=== PATIENT | female | born 1980 | race Caucasian/White ===

== ENCOUNTER → 2017-07-31 12:54 | Outpatient (CLI) | payer OTHER, SELFPAY ==
--- NOTE | 2017-07-31 12:58 | VDLE_ITS ---
Reason For Study: LEG PAIN RIGHT LEFT CFV is compressible, spontaneous, phasic, CFV is compressible, spontaneous, phasic, competent and demonstrates normal competent, and demonstrates normal augmentation. augmentation. FV is compressible, spontaneous, phasic, FV is compressible, spontaneous, phasic, competent and demonstrates normal competent and demonstrates normal augmentation. augmentation. POP V is compressible, spontaneous, phasic, POP V is compressible, spontaneous, phasic, competent and demonstrates normal competent and demonstrates normal augmentation. augmentation. T/P Trunk is compressible. T/P Trunk is compressible. PTV is compressible. PTV is compressible. RT PerV is compressible. LT PerV is compressible. SFJ competent SFJ INCOMPETENT with reflux greater than .5 GSV competent sec SSV competent. GSV INCOMPETENT with reflux greater than .5 Procedure sec and diameter of .32 x .31 cm Exam performed in department. SSV is competent. Interpretation Summary Deep veins of the lower extremities are bilaterally patent and compressible segmentally. There is no evidence of deep vein thrombosis on either side. Valvular competence appears intact within the proximal deep venous systems bilaterally. The greater saphenous veins appear bilaterally patent and compressible segmentally. The right sapheno-femoral junction is competent . The left sapheno- femoral junction is incompetent . The right greater saphenous vein appears segmentally competent. The left greater saphenous vein appears segmentally incompetent. Small saphenous veins are patent and competent bilaterally. Ordering Physician: Jose Pearson Referring Physician: Jose Pearson Performed By: Marj Gomez RVT
== END ==
PROVIDERS: Family Provider Family Medicine; PCP Family Medicine; Visit Provider Surgery
DX: M79.89 Other specified soft tissue disorders (principal); M79.609 Pain in unspecified limb; I87.2 Venous insufficiency (chronic) (peripheral); I83.10 Varicose veins of unspecified lower extremity with inflammation
CPT/HCPCS: 93970

== ENCOUNTER → 2019-03-01 | Outpatient (CLI) | payer OTHER, SELFPAY ==
[2018-08-03 14:23] VITALS: BMI 23.9
[2019-03-02 15:53] LABS: CHOLESTEROL TOTAL 316 mg/dL (100-199); HDL-C 63 mg/dL (>39); HDL-P TOTAL 44.8 umol/L (>=30.5); SMALL LDL-P 1517 nmol/L (<=527); TRIGLYCERIDES 154 mg/dL (0-149)
[2019-03-02 16:07] LABS: INSULIN RESISTANCE SCORE 39 (<=45); LDL SIZE 21.1 nm (>20.5); LDL-C 222 mg/dL (0-99); LDL-P 3130 nmol/L (<1000)
== END | disposition home or self-care (01) ==
LOC: LAB 10:22
PROVIDERS: Family Provider Family Medicine; PCP Family Medicine; Referring Provider Family Medicine; Visit Provider Family Medicine
DX: E78.5 Hyperlipidemia, unspecified (principal)
CPT/HCPCS: 36415; 80061; 83704

== ENCOUNTER → 2019-04-09 | Outpatient (CLI) | payer OTHER, SELFPAY ==
[2019-04-09 13:37] VITALS: BMI 23.9
[2019-04-09 19:35] LABS: Chlamydia Trachomatis by PCR Negative (Negative); Neisserai gonorrhoeae by PCR Negative (Negative); Probe Check PASS; Sample Adequacy Control PASS; Specimen Processing Control PASS
== END | disposition home or self-care (01) ==
LOC: LABSPEC 17:04
PROVIDERS: Family Provider Family Medicine; PCP Family Medicine; Referring Provider Nurse Practitioner Women's Health; Visit Provider Nurse Practitioner Women's Health
DX: N89.8 Other specified noninflammatory disorders of vagina (principal); Z11.3 Encounter for screening for infections with a predominantly sexual mode of transmission
CPT/HCPCS: 87070; 87086; 87205; 87491; 87591

== ENCOUNTER → 2019-07-01 08:23 | Outpatient (CLI) | payer OTHER, SELFPAY ==
[2018-08-03 14:23] VITALS: BMI 23.9
[2019-04-09 13:37] VITALS: BMI 23.9
[2019-07-01 12:05] LABS: HIV - WCH Non-Reactive (Nonreactive)
[2019-07-02 14:08] LABS: CHOLESTEROL TOTAL 192 mg/dL (100-199); HDL-C 69 mg/dL (>39); HDL-P TOTAL 49.4 umol/L (>=30.5); SMALL LDL-P 1122 nmol/L (<=527); TRIGLYCERIDES 105 mg/dL (0-149)
[2019-07-02 19:24] LABS: INSULIN RESISTANCE SCORE 34 (<=45); LDL SIZE 20.1 nm (>20.5); LDL-C 102 mg/dL (0-99); LDL-P 1791 nmol/L (<1000)
[2019-07-02 20:07] LABS: HCV Quant. RNA PCR HCV Not Detected IU/mL (.); HEPATITIS B SURFACE AG Negative (Negative); Hepatitis A IgM Antibody Negative (Negative); Hepatitis B Core AB IgM Negative (Negative)
[2019-07-02 21:45] LABS: HSV 1 IgG < 0.91 index (0.00-0.90); HSV 2 IgG < 0.91 index (0.00-0.90); Hep C Antibodies <0.1 s/co ratio (0.0-0.9)
[2019-07-08 03:49] LABS: Rapid Plasmin Reagin (RPR) NONREACTIVE (NONREACTIVE)
== END ==
LOC: LAB.FUTURE 08:25 → LAB 08:29
PROVIDERS: Nurse Practitioner Women's Health; Family Provider Family Medicine; PCP Family Medicine; Referring Provider Family Medicine; Visit Provider Family Medicine
DX: E78.5 Hyperlipidemia, unspecified (principal); Z11.3 Encounter for screening for infections with a predominantly sexual mode of transmission
CPT/HCPCS: 36415; 80061; 80074; 83704; 86592; 86695; 86696; 86703; 87522

== ENCOUNTER → 2019-08-04 17:10 | Outpatient (CLI) | payer OTHER, SELFPAY ==
[2019-08-04 08:51] VITALS: BMI 23.9
[2019-08-10 12:07] LABS: HPV Genotype 16, Aptima Negative (Negative)
[2019-08-10 17:11] LABS: HPV APTIMA, High Risk Positive (Negative); HPV Genotype 18,45 Aptima Negative (Negative)
== END ==
PROVIDERS: PCP Family Medicine; Referring Provider Nurse Practitioner Women's Health; Visit Provider Nurse Practitioner Women's Health
DX: Z12.4 Encounter for screening for malignant neoplasm of cervix (principal)
CPT/HCPCS: 87624; 88175; G0145

== ENCOUNTER → 2019-08-12 07:30 | Outpatient (CLI) | payer OTHER, SELFPAY ==
[2019-08-04 08:51] VITALS: BMI 23.9
--- NOTE | 2019-08-12 07:00 | BI_ITS ---
MAMMOGRAPHY - BILATERAL SCREENING REASON FOR EXAM: Female, 38 years old. Routine annual screening examination. PERTINENT HISTORY: Grandmother with breast cancer. History of bilateral breast implants. TECHNIQUE: Digital bilateral breast pearl (3D mammographic acquisition) in the CC and MLO projections. 2-D mediolateral oblique (MLO) and craniocaudad (CC) views of both breasts were obtained. CAD: Full Field Digital Mammography with Computer Added Detection was performed. COMPARISON: None. Baseline examination. FINDINGS: Breast Composition: The breasts are heterogeneously dense, which may obscure small masses. There are no dominant masses or suspicious calcifications. I suspect a 6.3 mm x 9.6 mm well-defined nodule in the upper lateral aspect of the left breast. Correlation with ultrasound is recommended. Bilateral breast implants are seen. No other significant abnormalities are identified. BI/SCREEN MAMM (CAD) W/PEARL BILAT IMPRESSION: I suspect is 6.3 mm x 9.6 mm well-defined nodule in the upper lateral aspect of the left breast. Correlation with ultrasound is recommended. ASSESSMENT CATEGORY: BIRADS Category 0: Incomplete. Need additional imaging evaluation. A letter regarding these results will be sent to the patient by the facility within 30 days. Approximately 10% of breast cancers are not detected by mammography. A normal mammogram should not delay biopsy of a clinically suspicious abnormality. [id number] Electronically Signed: Krishan Lu, at 8:55 EDT , Service support ,
== END ==
PROVIDERS: PCP Family Medicine; Referring Provider Nurse Practitioner Women's Health; Visit Provider Nurse Practitioner Women's Health
DX: Z12.31 Encounter for screening mammogram for malignant neoplasm of breast (principal)
CPT/HCPCS: 77063; 77067

== ENCOUNTER → 2019-08-13 11:04 | Outpatient (CLI) | payer OTHER, SELFPAY ==
[2019-08-04 08:51] VITALS: BMI 23.9
--- NOTE | 2019-08-13 11:07 | US_ITS ---
STUDY: ULTRASOUND BREAST - LEFT REASON FOR EXAM: Female, 38 years old. Abnormal screening mammogram. TECHNIQUE: Axial and longitudinal images of the LEFT breast were performed with a high resolution ultrasound transducer. # OF IMAGES: 18 COMPARISON: Comparison is made with prior mammogram dated August 12, 2019. FINDINGS: LEFT Breast: The mammographic abnormality corresponds to a 7 mm x 10 mm x 3 mm cyst at the 2:00 position of the breast at 3 cm from the nipple. US/Breast Limited Unilateral IMPRESSION: The mammographic abnormality corresponds to a 7 mm x 10 mm x 3 mm cyst. ASSESSMENT CATEGORY: BIRADS Category 2: Benign. A letter regarding these results will be sent to the patient by the facility within 30 days. Electronically Signed: Krishan Lu, at 11:01 EDT , Service support ,
== END ==
PROVIDERS: PCP Family Medicine; Referring Provider Nurse Practitioner Women's Health; Visit Provider Nurse Practitioner Women's Health
DX: R92.8 Other abnormal and inconclusive findings on diagnostic imaging of breast (principal)
CPT/HCPCS: 76642

== ENCOUNTER 2019-11-23 07:08 | Day surgery (SDC) | payer OTHER, SELFPAY ==
[2019-08-04 08:51] VITALS: BMI 23.9
[2019-11-16 17:11] LABS: Hematocrit 38.6 % (37-47); Hemoglobin 12.6 g/dL (12.0-15.0); Mean Corp Hgb Conc 32.6 g/dL (32-36); Mean Corpuscular Hgb 29.6 pg (27.0-32.0); Mean Corpuscular Volume 90.6 fL (81-99); Mean Platelet Vol. 10.5 fl (6.2-12.0); Platelet Count 238 K/mm3 (150-450); RBC Distribution Width CV 12.9 % (11.6-14.6); RBC Distribution Width SD 42.1 fl (35.1-43.9); Red Blood Count 4.26 M/mm3 (4.2-5.4); White Blood Count 7.2 K/mm3 (4.4-11.0)
[2019-11-18 10:07] VITALS: BMI 23.9
[2019-11-23] VITALS (9 sets, daily range): BP systolic 86–104; BP diastolic 47–59; PULSE 53–92; RESP 16; TEMP 37–37.3; O2SAT 96–100; BMI 26.3
[2019-11-23 07:32] LABS: Internal QC Validated? YES +Cl - CLEAR BKGD; Pregnancy, Urine Negative Negative
--- NOTE | 2019-11-23 07:36 | OP.PCM_ITS ---
Problem List (1) Sterilization Status: Acute Report of Operation Date of Procedure: 11/23/19 Pre-Operative Diagnosis: sterilization Post-Operative Diagnosis: same plus mild left pelvic side wall adhesions Surgery/Procedure Performed:: laparoscopic bilateral salpingectomy Description of Surgical Findings:: nl tubes ovaries appendix upper abdomen left sigmoid to pelvic side wall adhesions construction project mgr: Krystle Kaur Type of Anesthesia:: General Special Medications: none Specimen's removed: tubes Drains: none Estimated Blood Loss (mL): 10 Fluids Replaced: crystalloid Description of Procedure: Patient was taken in the operating room and was placed under general anesthesia was prepped and draped in normal sterile fashion in the dorsal lithotomy position. Bladder was drained of clear urine and SCDs were on preoperatively. Uterus was sounded and a uterine manipulator was placed after dilating. Attention was then paid to the abdominal portion of the procedure and the umbilicus was elevated with towel clamps and injected with Marcaine and after a 5 mm incision was made and the Veress needle was entered into the abdomen confirmed to be intra-abdominal with a low opening pressure of less than 5 mmHg. Abdomen was insufflated with CO2 gas and a 5 mm optical trocar was placed under direct visualization. A left lower quadrant 5 mm port and a 5 mm port suprapubically were placed under direct visualization. left sigmoid to pelvic side wall adhesions were transected to restore normal anatomy. Uterus was well visualized and bilateral fallopian tubes identified and bilateral tubes were elevated and transecting across the mesosalpinx and the attachment to the uterine corpus bilaterally the tubes were removed without complication. Excellent hemostasis was noted. Fallopian tubes were removed through the lower port sites without complication. Liver and upper abdomen were visualized notably within normal limits and no other gross abnormalities were seen in the abdomen. All instruments removed from the abdomen after gas was desufflated. Port sites were closed with 3-0 Monocryl Steri's and op sites were applied. All instruments removed from the vagina and patient was awoken and taken recovery in stable condition. Grafts/Implants Used: none - Complications none - Admit VTE Documentation VTE Present on Admission: No VTE Mechan Device Prophylaxis: SCD's Multi Select Codes - Urinary/Genital Urinary/Genital CPT Codes: 66213 Laproscopic BS/O
--- NOTE | 2019-11-23 07:36 | HP.PCM_ITS ---
- Problem List (1) Sterilization Status: Acute History and Physical Date of Admission: 11/23/19 Intake Vital Signs 11/18/19 BMI 23.9 11/18/19 Height 5 ft 3 in 11/18/19 Weight: 149 lb 8 oz 11/18/19 BMI 26.4 11/18/19 BP 102/64 Intake Visit Reasons: pre op Chief Complaint: pre op Lap BS 11/23/19 Men'S Leather Dress Belt Maker Required: No Is patient in pain?: No Allergies No Known Allergies Allergy (Verified 11/18/19 10:06) Medications vitamin B complex 1 tab PO QDAY 08/05/17 [History Confirmed 11/18/19] omega-3 fatty acids 1,000 mg capsule 1,000 mg PO DAILY 08/04/19 [History Confirmed 11/18/19] rosuvastatin 20 mg tablet 20 mg PO DAILY 08/04/19 [History Confirmed 11/18/19] Spironolactone [Aldactone] 100 mg PO DAILY 11/16/19 [History Confirmed 11/18/19] Ubidecarenone [Coq-10] 100 mg PO DAILY 11/16/19 [History Confirmed 11/18/19] Is last menstrual period known: No Post menopausal: No Patient : No : No [facility] Medical History Headaches, cluster (Acute) Hyperlipidemia (Acute) Surgical History History of breast augmentation (Acute) History of exploratory laparotomy (Acute) Family History Other Alcoholism Anxiety Asthma High cholesterol Social History (Updated 11/18/19 @ 10:[address] 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 Pregancy History 3 Elective abortions Hx Para 2 Spontaneous abortions 1 Hx # Term Pregnancies Ectopic pregnancies Hx # Pregnancies Multiple births # of living children 2 Past Pregnancies Del. Date Name GA/Weeks Outcome Route Bth Weight [facility] [place] 2009 Unknown [place] 2011 ROS Const Constitutional: Denies fatigue, fever(s), headache(s), increased appetite, poor appetite, weight gain or weight loss ENT ENT: Denies dizziness or dry mouth Cardio Card: Denies chest pain Resp Resp: Denies cough or dyspnea GI GI: Reports as per HPI; denies abdominal pain, constipation, nausea or vomiting : Reports as per HPI; denies difficulty urinating, painful urination, nipple discharge, urinary frequency, urinary incontinence, urinary hesitancy, urinary urgency, vaginal discharge, vaginal dryness, vaginal odor or vaginal itching Musc Musc: Denies joint pain, back pain or muscle weakness Skin Skin/Breast: Denies change in hair, breast lump, breast pain, breast skin changes or nipple discharge Neuro Neuro: Denies dizziness Psych Psych: Denies anxiety or depression Endo Endo: Denies cold intolerance, excessive sweating, heat intolerance or increased thirst Jr/Lymph Hematologic/Lymphatic: Denies easy bleeding, Denies easy bruising, Denies enlarged lymph nodes Exam Const General: cooperative, healthy appearing, comfortable, no acute distress, well developed Nutritional Appearance: average body habitus Orientation: alert [facility] Head: normal to inspection, normocephalic Ears: hearing grossly normal bilaterally, external ears normal Nose: external nose normal, nares normal Face and sinus: normal facial exam Neck Neck: normal visual inspection, no lymphadenopathy, trachea midline Thyroid: thyroid normal Chest Chest palpation & inspection: normal inspection of the chest Resp Effort & Inspection: normal respiratory effort Auscultation: clear to auscultation bilaterally Cardio Rate: regular rate Rhythm: regular rhythm Heart Sounds: S1 normal, S2 normal GI Inspection: normal to inspection, non-distended Palpation: soft, no hepatosplenomegaly Musc Cervical Spine: other Other: gross motor intact no deficits, full bilateral strength Skin General: no rashes or lesions noted Neuro General: alert, awake, moves all extremities, no focal motor deficits Motor: muscle tone normal throughout Extrem General: normal to inspection, no pedal edema Psych Appearance: grossly normal Mental Status: mental status grossly normal Affect: normal affect Speech and Movement: speech and movement normal Assessment & Plan Problems 1. Sterilization Z30.2 Plan After discussing the patient's diagnosis and treatment plan options, patient wishes to proceed with surgical management. I have discussed with the patient the risks, benefits, and alternatives of the procedure which include but are not limited to risks of anesthesia, bleeding, infection, possible damage to bowel, bladder, or surrounding vasculature which could lead to additional surgery to evaluate any complications. Patient agrees to procedure and wishes to proceed. ACOG/uptodate references given for additional information regarding procedure. Plan Detail Goals Decrease pain and spasm Coding Level of Care Code No Charge Diagnoses Sterilization Z30.2 UPDATE- I have seen the patient and performed any clinically relevant updates to the history and physical exam. Mamie Barbosa MD
[2019-11-23] MEDS: Lactated Ringers 1,000 ML 100 ML IV ×2 (07:47→09:01)
--- NOTE | 2019-11-23 08:02 | PCM.DC.TUB ---
Discharge Diet: No Restrictions - Increase fluid intake for the next 48 hours. Discharge Activity: Return to Normal Activity, May Drive - when you are no longer taking narcotic pain medications., May Shower, May Take a Tub Bath - in 7 days Additional Activity Instructions:: Ambulate often the next week after surgery. Nothing in the vagina for 5 days. Call your doctor if your incision/area has: Continuous Slow Oozing, Sudden Increased Bleeding, Increased Pain/ Swelling, Increased Redness, Foul Smelling Discharge Call your doctor if you observe: Fever of 101 or Higher Allergies/Adverse Reactions: Allergies No Known Allergies Allergy (Verified 11/18/19 10:06) Medications to take at Discharge vitamin B complex 1 tab PO QDAY 08/05/17 omega-3 fatty acids 1,000 mg capsule 1,000 mg PO DAILY 08/04/19 rosuvastatin 20 mg tablet 20 mg PO DAILY 08/04/19 Spironolactone [Aldactone] 100 mg PO DAILY 11/16/19 Ubidecarenone [Coq-10] 100 mg PO DAILY 11/16/19 Naproxen [Naprosyn] 250 - 500 mg PO Q8H PRN PRN #30 tab 11/23/19 Oxycodone HCl/Acetaminophen [Percocet 5-325] 1 - 2 tablet PO Q6H PRN PRN 7 Days #15 tablet 11/23/19 The following prescriptions were given: Naproxen [Naprosyn] 250 - 500 mg PO Q8H PRN PRN #30 tab PRN Reason: MILD PAIN Transmission Status: Pending to [facility] Oxycodone HCl/Acetaminophen [Percocet 5-325] 1 - 2 tablet PO Q6H PRN PRN 7 Days #15 tablet PRN Reason: Pain Transmission Status: Sent to [facility] Primary Care Physician: Yeison Aguilar DO [Primary Care Provider] - Test Results: Test results from this visit will be discussed in further detail at your follow-up appointment, if applicable. Please Follow Up With: Mamie Barbosa MD - [phone]
[2019-11-23] MEDS: Bupivacaine 0.25% 30 ML Vial (08:30)
--- NOTE | 2019-11-23 08:30 | FALS_PTH ---
PATIENT: ISIDORO GARCIAS LOC: [facility] [place] U#:[id number] AGE/SX: 38/F ROOM: RE11/23/[address]: Dr. Mamie Barbosa MD : 1980 BED: DIS: 11/23/2019 SPEC #: [id number] RECD: 11/23/19 09:30 STATUS: ANAND RALPH #: [id number] DRAKE: 11/23/19 08:[address]: Mamie Barbosa DEPT: SURGICAL PATHOLOGY RECD BY: Tim Cruz ENTERED: 11/23/19 10:01 SP TYPE: FALL TUBES OTHR DR: Dr. Yeison Aguilar, DO Tissues: Fallopian tube Procedures: Surgery Specimen Level II HEADER OPERATION: Laparoscopic salpingectomy PRE-OP DIAGNOSIS: Desired sterilization TISSUE SUBMITTED: Bilateral fallopian tubes MICROSCOPIC DIAGNOSIS Right and left fallopian tubes, bilateral salpingectomies: Bilateral fallopian tubes with no pathologic change. AM:blaze 11/24/19 MICROSCOPIC DESCRIPTION Slides are reviewed. GROSS DESCRIPTION Received in fixative is one container labeled with the patient's name and designated bilateral fallopian tubes. The specimen consists of bilateral fallopian tubes including fimbrial ends measuring 4.5 cm in length and 0.6 cm in diameter and 7 cm in length and 0.7 cm in diameter. The fallopian tubes are not identified as right or left. Sections reveal unremarkable cut surfaces. Portable Sawmill Operator sections are submitted in two cassettes with each cassette containing one fallopian tube. / MARTELL:blaze 11/23/19 TC:4 CPT: 54546 x2
[2019-11-23] MEDS: HYDROcodone Bitartrate/Apap 5/325 Tablet PO (10:40)
== END 2019-11-23 11:11 | disposition home or self-care (01) ==
LOC: SDC 07:08 → AC 07:09
PROVIDERS: Anesthesiology; PCP Family Medicine; Referring Provider Obstetrics & Gynecology; Visit Provider Obstetrics & Gynecology
PROC: (CPT 58661; principal; 2019-11-23 08:15)
DX: Z30.2 Encounter for sterilization (principal); Z11.59 Encounter for screening for other viral diseases; E78.5 Hyperlipidemia, unspecified; Z79.899 Other long term (current) drug therapy
CPT/HCPCS: 00840; 58661; 36415; 81025; 85027; 86850; 86900; 86901; 87635; 88302; G2023; J7120; J2405; U0003

== ENCOUNTER → 2019-12-10 13:54 | Outpatient (CLI) | payer OTHER, SELFPAY ==
[2019-12-08 08:57] VITALS: BMI 26.3
--- NOTE | 2019-12-10 13:56 | US_ITS ---
STUDY: ULTRASOUND TRANSVAGINAL CLINICAL: Female, 38 years old. PELVIC PAIN LLQ X 2 WEEKS RECENT TUBAL TECHNIQUE: Transvaginal COMPARISON: None. FINDINGS: Normal uterine size measuring 10.0 x 5.6 x 4.6 cm in maximal craniocaudal dimension. There are no myometrial masses. Normal endometrial thickness measuring 12 mm. It is hyperechoic There are no endometrial masses, and there is no fluid in the endometrial cavity. Nabothian cysts at the uterine cervix. Normal right ovary, measuring 4.0 x 3.0 x 3.4 cm. There is a 3.0 x 2.5 x 1.8 cm cyst. Normal left ovary, measuring 3.2 x 2.6 x 1.5 cm. There are multiple follicles without a dominant cyst. Prominent left adnexal vascularity is noted. There is mild free fluid in the pelvis. US/Pelvic (Non ) IMPRESSION: Left ovarian cyst. Prominent left adnexal vascularity. Mild pelvic fluid. Electronically Signed: Federico Law DO at 8:51 EDT Tel [phone], Service support ,
--- NOTE | 2019-12-10 13:56 | US_ITS ---
STUDY: ULTRASOUND OF THE FEMALE PELVIS - COMPLETE REASON FOR EXAM: Female, 38 years old. PELVIC PAIN X 2 WEEKS RECENT TUBAL LMP: November 17, 2019 TECHNIQUE: Transabdominal and endovaginal TECHNICAL QUALITY: Adequate. COMPARISON: None. FINDINGS: The uterus is anteverted and is in a midline position. The uterus measures 10.0 x 5.6 x 4.6 cm. Nabothian cysts at the uterine cervix. The endometrium measures 12 mm in thickness, and is hyperechoic. There is no demonstrated endometrial mass. There is no demonstrated myometrial mass. The patient does not have an I.U.D. The right ovary is visualized. The right ovary measures 4.0 x 3.0 x 3.4 cm. There is a 2.5 x 3.0 right ovarian cyst. There is normal arterial and normal venous vascularity. The left ovary is visualized. The left ovary measures 3.2 x 2.6 x 1.5 cm. There is no left ovarian cyst or ovarian mass. There is no visualized left adnexal mass or complex lesion. There is prominent left adnexal vascularity. There is mild pelvic fluid. US/Transvaginal Non- IMPRESSION: Nabothian cysts. Right ovarian cyst. Prominent left adnexal vascularity. Mild pelvic free fluid. Electronically Signed: Federico Law DO at 8:34 EDT Tel [phone], Service support ,
== END ==
PROVIDERS: PCP Family Medicine; Referring Provider Nurse Practitioner Women's Health; Visit Provider Nurse Practitioner Women's Health
DX: R10.2 Pelvic and perineal pain (principal)
CPT/HCPCS: 76830; 76856; 93976

== ENCOUNTER → 2020-08-10 13:40 | Outpatient (CLI) | payer OTHER, SELFPAY ==
[2020-08-10 08:14] VITALS: BMI 23.2
[2020-08-16 08:53] LABS: HPV APTIMA, High Risk Negative (Negative)
== END ==
PROVIDERS: PCP Family Medicine; Visit Provider Obstetrics & Gynecology
DX: Z12.4 Encounter for screening for malignant neoplasm of cervix (principal)
CPT/HCPCS: 87491; 87591; 87624; 88175; G0145

== ENCOUNTER → 2020-08-15 09:22 | Outpatient (CLI) | payer OTHER, SELFPAY ==
[2020-08-10 08:14] VITALS: BMI 23.2
== END ==
PROVIDERS: PCP Family Medicine; Referring Provider Obstetrics & Gynecology; Visit Provider Obstetrics & Gynecology
DX: Z87.440 Personal history of urinary (tract) infections (principal)
CPT/HCPCS: 87086

== ENCOUNTER → 2020-08-18 11:43 | Outpatient (CLI) | payer OTHER, SELFPAY ==
[2019-12-08 08:57] VITALS: BMI 26.3
[2020-08-10 08:14] VITALS: BMI 23.2
--- NOTE | 2020-08-18 11:43 | BI_ITS ---
MAMMOGRAPHY - BILATERAL SCREENING REASON FOR EXAM: Female, 39 years old. Routine annual screening examination. PERTINENT HISTORY: Grandmother with breast cancer. Bilateral breast implants. TECHNIQUE: Digital bilateral breast pearl (3D mammographic acquisition) in the CC and MLO projections. 2-D mediolateral oblique (MLO) and craniocaudad (CC) views of both breasts were obtained. CAD: Full Field Digital Mammography with Computer Added Detection was performed. COMPARISON: Comparison is made with prior study of 08/12/2019. FINDINGS: Breast Composition: The breasts are extremely dense, which lowers the sensitivity of mammography. There are no dominant masses or suspicious calcifications. Stable appearance of the bilateral breast implants. The previously seen subcentimeter well-defined nodule in the upper lateral aspect of the left breast is not seen at this time. No other significant abnormalities are identified. There has been no significant change since the prior study. BI/SCRN MAMM (CAD)W/PEARL BILAT IMPRESSION: Stable bilateral screening mammogram. Yearly follow-up mammogram recommended. (A) ASSESSMENT CATEGORY: BIRADS Category 2: Benign. A letter regarding these results will be sent to the patient by the facility within 30 days. Approximately 10% of breast cancers are not detected by mammography. A normal mammogram should not delay biopsy of a clinically suspicious abnormality. [id number] Electronically Signed: Krishan Lu MD at 13:04 EDT , Service support ,
== END ==
PROVIDERS: PCP Family Medicine; Referring Provider Obstetrics & Gynecology; Visit Provider Obstetrics & Gynecology
DX: Z12.31 Encounter for screening mammogram for malignant neoplasm of breast (principal)
CPT/HCPCS: 77063; 77067

== ENCOUNTER 2020-10-25 15:31 | Outpatient (RCR) | payer SELFPAY ==
[2020-08-10 08:14] VITALS: BMI 23.2
--- NOTE | 2021-04-30 15:47 | HP.PT.NRP ---
ISIDORO GARCIAS was seen in my office for initial evaluation on . The following Plan of Care was established for this patient: This patient was last seen in our office . Pertinent comments regarding their Physical therapy will appear below: Self pay DN- d/c At this point I will be discontinuing this patient from physical therapy. I would be happy to see this patient again in the future if found appropriate by the physician. Thank you! JONI LuqueT
== END 2020-10-25 19:00 | disposition home or self-care (01) ==
LOC: PT 15:31
PROVIDERS: PCP Family Medicine
DX: R69 Illness, unspecified (principal)

== ENCOUNTER → 2020-11-01 12:25 | Outpatient (CLI) | payer OTHER, SELFPAY ==
[2020-08-10 08:14] VITALS: BMI 23.2
== END ==
PROVIDERS: PCP Family Medicine; Referring Provider Internal Medicine; Visit Provider Internal Medicine
DX: Z11.59 Encounter for screening for other viral diseases (principal)
CPT/HCPCS: 87635; U0005; U0003

== ENCOUNTER → 2021-01-03 08:02 | Outpatient (CLI) | payer OTHER, SELFPAY ==
[2020-11-20 07:54] VITALS: BMI 23.7
[2021-01-03 11:02] LABS: Probe Check PASS; Specimen Processing Control PASS
== END ==
PROVIDERS: PCP Family Medicine; Visit Provider Internal Medicine Critical Care Medicine
DX: Z03.818 Encounter for observation for suspected exposure to other biological agents ruled out (principal)
CPT/HCPCS: 87635; U0005; U0003

== ENCOUNTER → 2021-01-24 07:24 | Outpatient (CLI) | payer OTHER, SELFPAY ==
[2019-12-08 08:57] VITALS: BMI 26.3
[2021-01-26 13:40] LABS: CHOLESTEROL TOTAL 150 mg/dL (100-199); HDL-C 60 mg/dL (>39); HDL-P TOTAL 37.2 umol/L (>=30.5); INSULIN RESISTANCE SCORE 31 (<=45); LDL SIZE 20.4 nm (>20.5); LDL-C (NIH CALC) 78 mg/dL (0-99); LDL-P 875 nmol/L (<1000); SMALL LDL-P 429 nmol/L (<=527); TRIGLYCERIDES 57 mg/dL (0-149)
== END ==
PROVIDERS: PCP Family Medicine; Referring Provider Family Medicine; Visit Provider Family Medicine
DX: Z00.00 Encounter for general adult medical examination without abnormal findings (principal); E78.5 Hyperlipidemia, unspecified
CPT/HCPCS: 36415; 80061; 83704

== ENCOUNTER 2021-03-01 10:03 | Outpatient (RCR) | payer OTHER, SELFPAY ==
[2020-08-10 08:14] VITALS: BMI 23.2
--- NOTE | 2021-03-01 18:53 | MASS.EVAL_ITS ---
Massage Therapy Evaluation: Initial Evaluation Date: 03/01/2021 SUBJECTIVE: Kaylie is a 40 year old female who was referred to the [facility] facility for a massotherapy evaluation by Dr. Aguilar with the diagnosis of low backache and dorsalgia. She presents today with the symptoms of pain, stiffness and tension in the neck, head, mid back, low back, and hips. Kaylie reports having a past medical history of neck and back pain and complains of radiating pain from her neck into her shoulders. She reports having minimal improvement with exercise and stretching over the last few months. OBJECTIVE: Upon observation Kaylie has poor posture with her head and shoulders forward from the neutral position in sitting and standing. After examination and palpation, I found Kaylie to have high muscle tension with tenderness and myofascial restrictions in her sub occipitals, levator scapulae, trapezius, rhomboids, scalenes, and thoracic paraspinals. Her QL?s, lumbar paraspinals, piriformis, ITB?s, glute medius and minimus all were very tight with fascial restrictions, tender points and trigger points. The first treatment consisted of a one hour massage to her full body with myofascial release, muscle stripping, trigger point compression techniques, and cervical manual traction. ASSESSMENT: I feel that Kaylie is a good candidate for massotherapy at this time. She had a favorable response to the first treatment with reduction in her muscle aches, pain, and tension. She also had improvement in her cervical flexibility and low back flexibility. PLAN: The plan of care was reviewed with the patient. The patient is to be seen on an as needed basis for a total of ten sessions with the recommendation of once every month for a one hour treatment.
--- NOTE | 2021-05-17 18:52 | MASS.DISCH ---
Massage Therapy Discharge Summary: Discharge Date: 05/17/2021 Kaylie was seen for a massotherapy evaluation on 03/01/2021 with the diagnosis of dorsalgia. She was treated with one session of massage therapy consisting of deep pressure soft tissue techniques, myofascial release and trigger point compression to his cervical, thoracic, lower back and hips. Kaylie responded well to the therapy by reporting decreased tension and pain throughout her neck, shoulders, lower back, lower extremities and hips. Her goals for therapy were met throughout the treatment sessions. At this time this patient is being discharged from our care at [facility] facility.
== END 2021-03-01 19:00 | disposition home or self-care (01) ==
LOC: MASS 10:03
PROVIDERS: PCP Family Medicine; Referring Provider Family Medicine; Visit Provider Family Medicine
DX: M54.9 Dorsalgia, unspecified (principal)
CPT/HCPCS: 97124

== ENCOUNTER → 2021-04-19 11:38 | Outpatient (CLI) | payer OTHER, SELFPAY ==
[2021-04-19 12:04] LABS: Absolute Lymphocyte Count 1.67 X10^3/uL (0.83-4.51); Absolute Neutrophil Count 4.2 X10^3/uL (2.0-7.7); Basophil# 0.01 X10^3/uL; Basophil% 0.2 % (0-1); Eosinophil# 0.05 X10^3/uL; Eosinophils% 0.8 % (0-5); Hematocrit 37.4 % (37-47); Hemoglobin 12.1 g/dL (12.0-15.0); Lymphocyte # 1.67 X10^3/ul (0.83-4.51); Mean Corp Hgb Conc 32.4 g/dL (32-36); Mean Corpuscular Hgb 27.1 pg (27.0-32.0); Mean Corpuscular Volume 83.7 fL (81-99); Mean Platelet Vol. 10.7 fl (6.2-12.0); Monocyte# 0.52 X10^3/uL; Monocyte% 8.1 % (0-10); NRBC Flagged by Analyzer 0 % (0-5); Neutrophil # 4.17 X10^3/uL (2.7-7.7); Neutrophil % 64.7 % (47-70); Platelet Count 260 K/mm3 (150-450); RBC Distribution Width CV 14.3 % (11.6-14.6); RBC Distribution Width SD 43.9 fl (35.1-43.9); Red Blood Count 4.47 M/mm3 (4.2-5.4); White Blood Count 6.4 K/mm3 (4.4-11.0)
[2021-04-19 13:21] LABS: HIV - WCH Non-Reactive (Nonreactive); Hepatitis B Surface Antigen Non-Reactive (Nonreactive); Hepatitis C Antibody Non-Reactive (Nonreactive); Syphilis Antibodies Non-reactive
[2021-04-19 15:42] LABS: Chlamydia Trachomatis by PCR Negative (Negative); Neisserai gonorrhoeae by PCR Negative (Negative); Probe Check PASS; Sample Adequacy Control PASS; Specimen Processing Control PASS
[2021-04-23 09:58] LABS: Ferritin 8 ng/mL (8-252); Iron 90 ug/dL (50-170)
== END ==
PROVIDERS: PCP Family Medicine; Referring Provider Obstetrics & Gynecology; Visit Provider Obstetrics & Gynecology
DX: A64 Unspecified sexually transmitted disease (principal)
CPT/HCPCS: 36415; 82728; 83540; 85025; 86703; 86780; 86803; 87340; 87491; 87591

== ENCOUNTER → 2021-05-28 14:40 | Outpatient (CLI) | payer OTHER, SELFPAY | PROVIDERS: PCP Family Medicine; Referring Provider Obstetrics & Gynecology; Visit Provider Obstetrics & Gynecology | DX: N39.0 Urinary tract infection, site not specified (principal) | CPT/HCPCS: 87086 ==

== ENCOUNTER 2021-08-02 11:13 | Outpatient (CLI) | payer OTHER, SELFPAY ==
--- NOTE | 2021-08-02 11:15 | US_ITS ---
History: AUB, irregular cycles Pelvic Ultrasound: Findings: Transabdominal and endovaginal ultrasound imaging of the problems Uterus measures 10 cm in length. Endometrial cavity is ill-defined and thickened measuring 2.2 cm in AP dimension. The appearance raises the possibility of adenomyosis. Recommend correlation with MR of the pelvis. Small nabothian cysts are present. 3.8 cm left adnexal simple appearing cyst identified which may represent a dominant ovarian follicle. Right ovary is normal in size and echogenicity measuring 1.4 x 2.3 x 2.2 cm. No free pelvic fluid. IMPRESSION: Ill-defined thickened endometrium raising the possibility of adenomyosis. Follow-up MRI pelvis recommended. at 1503 Reported and signed by: Francesco Lyman MD Electronically Signed: Francesco Lyman MD at 15:02 EST , US/Transvaginal Non-
--- NOTE | 2021-08-02 11:15 | US_ITS ---
History: AUB, irregular cycles Pelvic Ultrasound: Findings: Transabdominal and endovaginal ultrasound imaging of the problems Uterus measures 10 cm in length. Endometrial cavity is ill-defined and thickened measuring 2.2 cm in AP dimension. The appearance raises the possibility of adenomyosis. Recommend correlation with MR of the pelvis. Small nabothian cysts are present. 3.8 cm left adnexal simple appearing cyst identified which may represent a dominant ovarian follicle. Right ovary is normal in size and echogenicity measuring 1.4 x 2.3 x 2.2 cm. No free pelvic fluid. IMPRESSION: Ill-defined thickened endometrium raising the possibility of adenomyosis. Follow-up MRI pelvis recommended. at 1503 Reported and signed by: Francesco Lyman MD Electronically Signed: Francesco Lyman MD at 15:02 EST , US/Pelvic (Non )
== END 2021-08-02 23:59 | disposition home or self-care (01) ==
LOC: US 11:14
PROVIDERS: PCP Family Medicine; Referring Provider Nurse Practitioner Women's Health; Visit Provider Nurse Practitioner Women's Health
DX: N93.9 Abnormal uterine and vaginal bleeding, unspecified (principal)
CPT/HCPCS: 76830; 76856

== ENCOUNTER 2021-09-10 15:52 | Outpatient (CLI) | payer OTHER, SELFPAY ==
--- NOTE | 2021-09-10 | EMB_PTH ---
PATIENT: ISIDORO GARCIAS [facility][id number] AGE/SX: 40/F ROOM: RE09/10/[address]: MELISSA Middleton : 1980 BED: DIS: 09/10/2021 SPEC #: [id number] RECD: 09/10/21 15:50 STATUS: ANAND RALPH #: [id number] DRAKE: 09/10/21 00:[address]: Cheyenne Rosales NP DEPT: SURGICAL PATHOLOGY RECD BY: Paulina Lopes ENTERED: 09/11/21 12:26 SP TYPE: ENDOM BX/C CONCHITA DR: Dr. Yeison Aguilar DO Tissues: Endometrium, NOS Procedures: Surgery Specimen Level IV HEADER OPERATION: Endometrial biopsy PRE-OP DIAGNOSIS: Abnormal uterine bleeding TISSUE SUBMITTED: Endometrial biopsy MICROSCOPIC DIAGNOSIS Endometrium, biopsy: Secretory endometrium. AM:blaze 09/12/2021 MICROSCOPIC DESCRIPTION Slides are reviewed. GROSS DESCRIPTION Received is one container labeled with the patient's name and not further designated. The specimen consists of multiple irregular fragments of light amaya soft tissue that in aggregate measure 2.5 x 2.5 x 0.2 cm. The specimen is totally submitted in one cassette. / AM:blaze 09/11/2021 TC:5 CPT: 60356
== END 2021-09-10 23:59 | disposition home or self-care (01) ==
LOC: LABSPEC 15:53
PROVIDERS: PCP Family Medicine; Visit Provider Nurse Practitioner Women's Health
DX: N93.9 Abnormal uterine and vaginal bleeding, unspecified (principal)
CPT/HCPCS: 88305

== ENCOUNTER 2022-04-30 05:35 | Day surgery (SDC) | payer OTHER, SELFPAY ==
[2022-04-29 07:33] LABS: Absolute Lymphocyte Count 1.94 X10^3/uL (0.83-4.51); Absolute Neutrophil Count 3.5 X10^3/uL (2.0-7.7); Basophil# 0.02 X10^3/uL; Basophil% 0.3 % (0-1); Eosinophil# 0.12 X10^3/uL; Eosinophils% 1.9 % (0-5); Hematocrit 36.2 % (37-47); Hemoglobin 11.2 g/dL (12.0-15.0); Lymphocyte # 1.94 X10^3/ul (0.83-4.51); Lymphocyte % 31.4 % (19-41); Mean Corp Hgb Conc 30.9 g/dL (32-36); Mean Corpuscular Hgb 25.3 pg (27.0-32.0); Mean Corpuscular Volume 81.9 fL (81-99); Mean Platelet Vol. 10.8 fl (6.2-12.0); Monocyte# 0.62 X10^3/uL; NRBC Flagged by Analyzer 0 % (0-5); Neutrophil # 3.46 X10^3/uL (2.7-7.7); Neutrophil % 56.2 % (47-70); Platelet Count 294 K/mm3 (150-450); RBC Distribution Width CV 15.3 % (11.6-14.6); RBC Distribution Width SD 45.3 fl (35.1-43.9); Red Blood Count 4.42 M/mm3 (4.2-5.4); White Blood Count 6.2 K/mm3 (4.4-11.0)
[2022-04-29 07:58] LABS: ALB/GLOB Ratio 1.1 RATIO (0.9-2.4); AST(SGOT) 9 U/L (15-37); Alanine Aminotransfer ALT/SGPT 20 U/L (13-56); Albumin, Serum 3.8 g/dL (3.2-5.0); Alkaline Phosphatase 50 U/L (45-117); Anion Gap 5 (5-15); BUN 17 mg/dL (7-18); BUN/Creat Ratio 21.4 RATIO (10-20); Calcium,Total 9.1 mg/dL (8.5-10.1); Chloride 107 mmol/L (98-107); Creatinine, Serum 0.79 mg/dL (0.55-1.02); EST Glomerular Filtration Rate 84 mL/min (>60); Est Glom Filt Rate - Afr Amer 102 mL/min (>60); Estimated Creatinine Clearance 75.96 ml/min; Globulin 3.5 g/dL (2.2-4.2); Glucose 78 mg/dL (74-106); Magnesium 1.8 mg/dL (1.6-2.6); Potassium 3.7 mmol/L (3.5-5.1); Protein, Total 7.3 g/dL (6.4-8.2); Sodium Level 139 mmol/L (136-145)
--- NOTE | 2022-04-29 08:41 | EKG12_ITS ---
Test Reason : PREOP Blood Pressure : / mmHG Vent. Rate : 062 BPM Atrial Rate : 062 BPM P-R Int : 186 ms QRS Dur : 076 ms QT Int : 440 ms P-R-T Axes : 060 025 049 degrees QTc Int : 446 ms Normal sinus rhythm Low voltage QRS Borderline ECG Confirmed by SULTANA BALLARD, RYAN ([id number]), managing editor KELSEY TORRES ([id number]) on 04/30/2022 9:06:40 AM Referred By: Mamie Barbosa Confirmed By:RYAN WEINBERG MD
--- NOTE | 2022-04-29 14:31 | HP.PCM_ITS ---
History and Physical Intake Vital Signs ? 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 Is patient in pain?: No Allergies No Known Allergies Allergy (Verified 07/30/21 10:29) Medications vitamin B complex (B Complex-Vitamin B12 tablet) 1 tab PO QDAY 08/05/17 [History Confirmed 04/01/22] omega-3 fatty acids 1,000 mg capsule (Fish Oil Concentrate) 1,000 mg PO DAILY 08/04/19 [History Confirmed 04/01/22] rosuvastatin 20 mg tablet (Crestor) 20 mg PO DAILY 08/04/19 [History Confirmed 04/01/22] coenzyme Q10 100 mg capsule 100 mg PO DAILY 11/16/19 [History Confirmed 04/01/22] spironolactone 100 mg tablet 100 mg PO DAILY 11/16/19 [History Confirmed 04/01/22] tranexamic acid 650 mg tablet (Lysteda) 1,300 mg PO TID 5 days #30 tabs 12/06/21 [Rx Confirmed 04/01/22] ondansetron HCl 4 mg tablet 4 mg PO Q6H PRN nausea and vomiting #16 tabs 12/20/21 [Rx Confirmed 04/01/22] Is last menstrual period known: No Post menopausal: No Patient : No : No [facility] Medical History?(Updated 12/20/21 @ 06:45 by Tyrel DAY PA) Headaches, cluster Hyperlipidemia Surgical History? History of breast augmentation History of exploratory laparotomy Hx of bilateral salpingectomy Family History? Other Alcoholism Anxiety Asthma High cholesterol Social History? Smoking Status:? Never smoker alcohol intake:? never substance use type:? does not use what type of physical activity do you participate in:? running, yoga and weight training frequency:? 3-4 times per week seatbelt use:? always do you feel safe at home:? Yes additional social history:? 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 nl emb. History ? ? ? 3 ? Elective abortions ? Hx Para ? ? ? 2 ? Spontaneous abortions ? ? ? 1 Hx # Term Pregnancies ? Ectopic pregnancies ? Hx # Pregnancies ? Multiple births ? # of living children ? ? ? 2 Past Pregnancies Del. Date Name GA/Weeks Outcome Route Bth Weight Gen Labor Lgth Anesthesia Del Locatn Provider FOB Unknown [place] ? 2008 ? Unknown Paula ? 2010 ? ROS Const Constitutional: Denies fatigue, fever(s), headache(s), increased appetite, poor appetite, weight gain or weight loss GI GI: Reports as per HPI; Denies abdominal pain, constipation, nausea or vomiting : Reports as per HPI; Denies difficulty voiding, dysuria, hematuria, pelvic pain, urinary frequency, urinary incontinence, urinary hesitancy, urinary urgency, vaginal discharge, vaginal dryness, vaginal odor, vaginal pruritus or other Exam Const General: cooperative, healthy appearing, comfortable, no acute distress and well developed Orientation: alert [facility] Head: normal to inspection and normocephalic Ears: hearing grossly normal bilaterally and external ears normal Nose: external nose normal and nares normal Face and sinus: normal facial exam Neck Neck: normal visual inspection, no lymphadenopathy and trachea midline Thyroid: thyroid normal Resp Effort & Inspection: normal respiratory effort Musc Other: gross motor intact no deficits, full bilateral strength Skin General: no rashes or lesions noted Neuro Motor: muscle tone normal throughout Coding Level of Care Code No Charge Diagnoses Abnormal uterine bleeding due to adenomyosis? N93.9; N80.0 Assessment and Plan Assessment and Plan (1) Abnormal uterine bleeding due to adenomyosis: ?Status:?Acute ?Comment: emb nl. US done. discussed medical vs surgical options, plan lysteda and then TVH in april. elevated cholesterol in past on hormonal pills. Plan After discussing the patient's diagnosis and treatment plan options, patient wishes to proceed with surgical management.? I have discussed with the patient the risks, benefits, and alternatives of the procedure which include but are not limited to risks of anesthesia, bleeding, infection, possible damage to bowel, bladder, or surrounding vasculature which could lead to additional surgery to evaluate any complications.? Patient agrees to procedure and wishes to proceed.? ACOG/uptodate references given for additional information regarding procedure.? UPDATE- I have seen the patient and performed any clinically relevant updates to the history and physical exam. Mamie Barbosa MD
[2022-04-30] VITALS (13 sets, daily range): BP systolic 88–98; BP diastolic 40–61; PULSE 55–81; RESP 14–18; TEMP 36.4–37; O2SAT 97–100; BMI 24.3
[2022-04-30] MEDS: Magnesium 2 GM for ERAS IV (06:16)
[2022-04-30] MEDS: Scopolamine 1mg/72hr Patch 1 PATCH TD (06:21)
[2022-04-30] MEDS: dexAMETHasone 10 MG/ML Vial 8 MG IV (06:22)
[2022-04-30] MEDS: Gabapentin 600 MG Tablet PO (06:23)
[2022-04-30] MEDS: Celecoxib 200 MG Capsule 400 MG PO (06:23)
[2022-04-30] MEDS: Phenazopyridine 95 MG Tablet 190 MG PO (06:23)
[2022-04-30] MEDS: Enoxaparin 40 MG/0.4 ML Syringe SC (06:23)
[2022-04-30] MEDS: Acetaminophen 500 MG Tablet 1000 MG PO ×2 (06:23→12:00)
[2022-04-30] MEDS: Lactated Ringers 1,000 ML 40 ML IV ×2 (06:24→10:56)
--- NOTE | 2022-04-30 07:30 | HYST_PTH ---
PATIENT: ISIDORO GARCIAS LOC: [facility] U#:[id number] AGE/SX: 41/F ROOM: RE04/30/[address]: Dr. Mamie Barbosa MD : 1980 BED: DIS: 04/30/2022 SPEC #: [id number] RECD: 04/30/22 13:39 STATUS: ANAND REMichelle #: [id number] DRAKE: 04/30/22 07:[address]: Mamie Barbosa DEPT: SURGICAL PATHOLOGY RECD BY: Paulina Lopes ENTERED: 05/01/22 09:02 SP TYPE: HYSTERECT OTHR DR: Dr. Yeison Aguilar, DO Tissues: Uterus, NOS Procedures: Surgery Specimen Level V HEADER OPERATION: ERAS, vaginal hysterectomy, cystoscopy PRE-OP DIAGNOSIS: Abnormal uterine bleeding due to adenomyosis TISSUE SUBMITTED: Uterus, cervix MICROSCOPIC DIAGNOSIS Uterus, hysterectomy: Cervix ? nabothian cysts and mild chronic inflammation. Endometrial polyp ? benign endometrial polyp with secretory change. Endometrium ? secretory endometrium. Myometrium ? adenomyosis and leiomyomas. AM:blaze 05/02/2022 MICROSCOPIC DESCRIPTION Slides are reviewed. GROSS DESCRIPTION Received in fixative is one container labeled with the patient's name and designated uterus, cervix. The specimen consists of a uterus with attached cervix measuring 11.5 x 5 x 4.5 and weighing 125 gm. The ectocervix is unremarkable. The endocervical canal measures 4 cm in length and is grossly unremarkable. The triangular endometrial cavity measures 4.5 x 3 cm. The anterior and middle surface contains a light amaya endometrial polyp measuring 0.8 x 0.5 x 0.2 cm. The endometrium is light amaya, velvety and glistening and grossly unremarkable and measures 2.2 cm in average thickness and contains two rubbery nodules resembling leiomyomas ranging in size from 0.7 to 1.5 cm in greatest dimension. Tick Eradicator sections are submitted in eight cassettes as follows: 1 - anterior cervix, 2 - posterior cervix, 3 - endometrial polyp, 4 & 5 - anterior uterine wall with nodule, 6 & 7 - posterior myometrial wall, 8??larger myometrial nodule, bisected. / AM:blaze 05/01/2022 TC:1 CPT: 88872
--- NOTE | 2022-04-30 07:34 | OP.PCM_ITS ---
Problems Associated Problem List Diagnoses (1) Abnormal uterine bleeding due to adenomyosis: Report of Operation Date of Procedure: 04/30/22 Pre-Operative Diagnosis: see A/P Post-Operative Diagnosis: same Surgery/Procedure Performed:: TVH cystoscopy Surgeon: Mamie Barbosa occupational therapy instructor: Ghazala Ugalde Type of Anesthesia: General Specimen's removed: uterus Drains: gray Estimated Blood Loss (mL): 150 Fluids Replaced: crystalloid Description of Procedure: Patient was taken to the operating room and was placed under general anesthesia was prepped and draped in normal sterile fashion in the dorsal lithotomy posi tion. Preoperative antibiotics and SCDs and Gray catheter was placed inside the bladder. Weighted speculum was placed in the vagina and the anterior and posterior lip of the cervix was grasped with 2 Lizbeth clamps and circumferentially injected with dilute vasopressin. A circumferential incision was made with a scalpel and the posterior cul-de-sac was entered into sharply and a longneck speculum was placed. The anterior cul-de-sac was also dissected down and entered into sharply and the uterosacral ligaments were clamped cut and suture ligated bilaterally followed by the cardinal ligaments which were Clamped cut and suture ligated bilaterally with 0 Monocryl. The uterus serially descended and progressive bites were taken bilaterally up to the level of the utero-ovarian ligament bilaterally which was clamped transected and double ligated with 0 Monocryl suture and 0 Vicryl free tie. Excellent hemostasis was noted. at this time in the right pelvic side wall a cystic 3 cm fluctuant lesion was noted in the broad ligament. it was fluctuant but not compressible and it was not enlarging. it had been vaguely seen at the beginning of the case but was thought to be part of the ovary but once the uterus was removed it was seen to be a broad ligament cystic structure. cystoscopy was performed to make sure that bilateral ureters were patent and they were, nl bladder lining. the c ystic area was not enlarging so it was left due to not having a malignant appearance and not wanting to increase the risk of bleeding if it would be opened and having limited vaginal access. The vagina was closed with [id number] 0 Vicryl pop offs including the posterior and anterior peritoneum in the reapproximation. Excellent hemostasis was noted. All instruments removed from the vagina clear urine was noted at the end of the procedure and patient was awoken and taken recovery in stable condition. Grafts/Implants Used: none Complications none Admit VTE Documentation VTE Present on Admission: No VTE Mechan Device Prophylaxis: SCD's VTE Pharm Prophylaxis ordered?: Yes Multi Select Codes Urinary/Genital Urinary/Genital CPT Codes: 85670 Cystoscopy and 97855 TVH+BS/O <250gr uterus
[2022-04-30] MEDS: Cefazolin 2 GM in 0.9% Normal Saline 100 ML IV (07:36)
--- NOTE | 2022-04-30 07:42 | DCINST_ITS ---
Discharge Instructions Procedure Hysterectomy, Vaginal Diet Discharge Diet: No restrictions Activity Discharge Activity: Return to Normal Activity, May Not Drive (while taking narcotic pain medications.) and May Shower May resume sexual activity in: 6-8 weeks Dressing / Incision Call your doctor if your incision/area has: Continuous Slow Oozing, Sudden Increased Bleeding, Increased Pain/ Swelling, Increased Redness and Foul Smelling Discharge Call your doctor if you observe: Fever of 101 or Higher, Inability to urinate, Inability to have a bowel movement and Using more than 1 pad per hour Follow Up Care Please Follow Up With: Mamie Barbosa MD Test Results: Test results from this visit will be discussed in further detail at your follow- up appointment, if applicable. Discharge Plan Admission Attending Provider: Mamie Barbosa Primary Care Provider: Yeison Aguilar Discharge Orders/Prescriptions Prescriptions: New oxycodone-acetaminophen [Percocet] 5-325 mg tablet 1 tab PO Q6H PRN (Reason: pain) 7 Days Qty: 20 0RF naproxen [naproxen] 500 mg tablet 500 mg PO BID PRN PRN (Reason: Pain) Qty: 30 1RF Continued vitamin B complex [B Complex-Vitamin B12] tablet 1 tab PO QDAY rosuvastatin [Crestor] 20 mg tablet 20 mg PO DAILY omega-3 fatty acids [Fish Oil Concentrate] 1,000 mg capsule 1,000 mg PO DAILY ondansetron HCl 4 mg tablet 4 mg PO Q6H PRN (Reason: nausea and vomiting) Qty: 16 0RF spironolactone 100 MG tablet 100 mg PO DAILY coenzyme Q10 100 MG capsule 100 mg PO DAILY Other Ambulatory Orders: 12 Lead EKG (Routine) Timeframe: [id number] Location: None Selected Ordered By: Dr. Mamie Barbosa Referrals / Follow Up: Yeison Aguilar DO [Primary Care Provider] - Disposition Disposition (needs filled in before D/C Order can be placed): Home, Self Care
[2022-04-30] MEDS: Vasopressin 20 UNITS/ML Vial (07:50)
[2022-04-30] MEDS: Ondansetron 4 MG/2 ML Vial IV (09:06)
[2022-04-30] MEDS: Sugammadex Sodium 200 MG/2 ML VIAL IV (09:08)
[2022-04-30 12:14] LABS: Bedside Glucose 119 mg/dL (74-106)
[2022-04-30 12:14] LABS: Bedside Glucose 187 mg/dL (74-106)
[2022-04-30 12:20] LABS: Hematocrit 32.4 % (37-47); Hemoglobin 10.3 g/dL (12.0-15.0); Mean Corp Hgb Conc 31.8 g/dL (32-36); Mean Corpuscular Hgb 25.8 pg (27.0-32.0); Mean Platelet Vol. 10.7 fl (6.2-12.0); Platelet Count 241 K/mm3 (150-450); RBC Distribution Width CV 15.1 % (11.6-14.6); White Blood Count 10.2 K/mm3 (4.4-11.0)
[2022-04-30] MEDS: Lactated Ringers 1,000 ML 999 ML IV (13:28)
== END 2022-04-30 14:50 | disposition home or self-care (01) ==
LOC: SDC 05:35 → AC 05:35
PROVIDERS: PCP Family Medicine; Referring Provider Obstetrics & Gynecology; Visit Provider Obstetrics & Gynecology
PROC: (CPT 58260; principal; 2022-04-30 07:10)
DX: N80.03 Adenomyosis of the uterus (principal); D25.9 Leiomyoma of uterus, unspecified; N88.8 Other specified noninflammatory disorders of cervix uteri; E78.00 Pure hypercholesterolemia, unspecified
CPT/HCPCS: 58260; 00944; 36415; 80053; 82962; 83735; 85025; 85027; 86850; 86900; 86901; 88307; 93005; 99251; J7120; G0463; J2405

== ENCOUNTER → 2022-06-19 | Outpatient (CLI) | payer OTHER, SELFPAY ==
--- NOTE | 2022-06-19 07:49 | BI_ITS ---
MAMMOGRAPHY - BILATERAL SCREENING REASON FOR EXAM: Female, 41 years old. Routine annual screening examination. PERTINENT HISTORY: Grandmother with breast cancer. Bilateral breast implants. TECHNIQUE: Digital bilateral breast pearl (3D mammographic acquisition) in the CC and MLO projections. 2-D mediolateral oblique (MLO) and craniocaudad (CC) views of both breasts were obtained. CAD: Full Field Digital Mammography with Computer Added Detection was performed. COMPARISON: Comparison is made with prior study from 08/18/2020 and 08/12/2019. FINDINGS: Breast Composition: The breasts are extremely dense, which lowers the sensitivity of mammography. There are no dominant masses or suspicious calcifications. Stable appearance of the bilateral breast implants. No other significant abnormalities are identified. There has been no significant change since the prior study. BI/SCRN MAMM (CAD)W/PEARL BILAT IMPRESSION: Stable bilateral screening mammogram. Yearly follow-up mammogram recommended. (A) ASSESSMENT CATEGORY: BIRADS Category 2: Benign. A letter regarding these results will be sent to the patient by the facility within 30 days. Approximately 10% of breast cancers are not detected by mammography. A normal mammogram should not delay biopsy of a clinically suspicious abnormality. [id number] Electronically Signed: Krishan Lu MD at 9:09 EST ,
== END | disposition home or self-care (01) ==
LOC: OPBI 07:48
PROVIDERS: PCP Family Medicine; Visit Provider Obstetrics & Gynecology
DX: Z12.31 Encounter for screening mammogram for malignant neoplasm of breast (principal); Z80.3 Family history of malignant neoplasm of breast; Z98.82 Breast implant status
CPT/HCPCS: 77063; 77067

== ENCOUNTER → 2022-06-20 | Outpatient (CLI) | payer OTHER, SELFPAY ==
--- NOTE | 2022-06-20 11:30 | US_ITS ---
STUDY: ULTRASOUND OF THE FEMALE PELVIS - COMPLETE REASON FOR EXAM: Female, 41 years old. Ovarian cysts. LMP: Patient is status post hysterectomy. TECHNIQUE: Transabdominal and Transvaginal TECHNICAL QUALITY: Adequate. COMPARISON: Comparison is made with prior study of 08/02/2021. FINDINGS: The patient is status post hysterectomy. The right ovary is visualized. The right ovary measures 3.7 cm x 4.1 cm x 2.4 cm. There is a 2.47 x 2.5 signed by 1.8 cm cyst. There is no visualized right adnexal mass or complex lesion. There is normal arterial and normal venous vascularity. The left ovary is visualized. The left ovary measures 4.3 cm x 3.3 cm x 2.2 cm. There is a 3.27 x 2.7 sign by 1.8 cm left ovarian cyst. There is no visualized left adnexal mass or complex lesion. There is normal arterial and normal venous vascularity. There is no fluid in the cul-de-sac. The pre void volume of the bladder was 708 ml. US/Transvaginal Non- IMPRESSION: Bilateral ovarian cysts. Electronically Signed: Krishan Lu MD at 14:41 EST ,
--- NOTE | 2022-06-20 11:30 | US_ITS ---
STUDY: ULTRASOUND OF THE FEMALE PELVIS - COMPLETE REASON FOR EXAM: Female, 41 years old. Ovarian cysts. LMP: Patient is status post hysterectomy. TECHNIQUE: Transabdominal and Transvaginal TECHNICAL QUALITY: Adequate. COMPARISON: Comparison is made with prior study of 08/02/2021. FINDINGS: The patient is status post hysterectomy. The right ovary is visualized. The right ovary measures 3.7 cm x 4.1 cm x 2.4 cm. There is a 2.47 x 2.5 signed by 1.8 cm cyst. There is no visualized right adnexal mass or complex lesion. There is normal arterial and normal venous vascularity. The left ovary is visualized. The left ovary measures 4.3 cm x 3.3 cm x 2.2 cm. There is a 3.27 x 2.7 sign by 1.8 cm left ovarian cyst. There is no visualized left adnexal mass or complex lesion. There is normal arterial and normal venous vascularity. There is no fluid in the cul-de-sac. The pre void volume of the bladder was 708 ml. US/Pelvic (Non ) IMPRESSION: Bilateral ovarian cysts. Electronically Signed: Krishan Lu MD at 14:41 EST ,
== END | disposition home or self-care (01) ==
LOC: US 11:28
PROVIDERS: PCP Family Medicine; Referring Provider Obstetrics & Gynecology; Visit Provider Obstetrics & Gynecology
DX: N83.202 Unspecified ovarian cyst, left side (principal); N83.201 Unspecified ovarian cyst, right side
CPT/HCPCS: 76830; 76856

== ENCOUNTER → 2022-08-22 | Outpatient (CLI) | payer OTHER, SELFPAY | END | disposition home or self-care (01) | LOC: LABSPEC 16:34 | PROVIDERS: PCP Family Medicine; Referring Provider Obstetrics & Gynecology; Visit Provider Obstetrics & Gynecology | DX: N89.8 Other specified noninflammatory disorders of vagina (principal) | CPT/HCPCS: 87070; 87205 ==

== ENCOUNTER → 2023-10-16 | Outpatient (CLI) | payer OTHER, SELFPAY ==
--- NOTE | 2023-10-16 07:33 | BI_ITS ---
MAMMOGRAPHY - BILATERAL SCREENING REASON FOR EXAM: Female, 42 years old. Routine annual screening examination. PERTINENT HISTORY: Grandmother with breast cancer. Bilateral breast implants. TECHNIQUE: Digital bilateral breast pearl (3D mammographic acquisition) in the CC and MLO projections. 2-D mediolateral oblique (MLO) and craniocaudad (CC) views of both breasts were obtained. CAD: Full Field Digital Mammography with Computer Added Detection was performed. COMPARISON: Comparison is made with prior study dated June 19, 2022 and August 18, 2020. FINDINGS: Breast Composition: The breasts are extremely dense, which lowers the sensitivity of mammography. There are no dominant masses or suspicious calcifications. Stable appearance of the bilateral breast implants with rim calcification of the implants. No other significant abnormalities are identified. There has been no significant change since the prior study. BI/SCRN MAMM (CAD)W/PEARL BILAT IMPRESSION: Stable bilateral screening mammogram. Yearly follow-up mammogram recommended. (A) ASSESSMENT CATEGORY: BIRADS Category 2: Benign. A letter regarding these results will be sent to the patient by the facility within 30 days. Approximately 10% of breast cancers are not detected by mammography. A normal mammogram should not delay biopsy of a clinically suspicious abnormality. [id number] Electronically Signed: Krishan Lu MD at 8:54 EDT ,
== END | disposition home or self-care (01) ==
LOC: OPBI 07:33
PROVIDERS: PCP Family Medicine; Referring Provider Obstetrics & Gynecology; Visit Provider Obstetrics & Gynecology
DX: Z12.31 Encounter for screening mammogram for malignant neoplasm of breast (principal); Z80.3 Family history of malignant neoplasm of breast
CPT/HCPCS: 77063; 77067

== ENCOUNTER 2024-05-20 06:10 | Day surgery (SDC) | payer OTHER, SELFPAY ==
--- NOTE | 2024-05-18 17:39 | PAT.ANE_ITS ---
Pre-Assessment Diagnosis/Proposed Procedure Planned Operative Procedure(s): COLONOSCOPY Anesthesia History Anesthesia History - statistician applied: Anesthesia History - statistician applied Hx Hospitalization No 05/18/24 13:40 Any Problems With Anesthesia No: NAUSEA 05/18/24 13:40 Cholinesterase deficiency No 05/18/24 13:40 You/Your Family Experience No 05/18/24 13:40 fever (hyperthermia) with Relationship Recent Exposure to Contagious No 04/30/22 06:18 Disease Does patient have nerve No 05/18/24 13:40 stimulator Patient instructed to have device shut off --Does patient have Pacemaker or ICD? When Was Last Pacemaker Check QUESTION #4 FULL TEXT: You/Your Family Experience fever (hyperthermia) with Anesthesia Last Oral Intake Last Oral intake: Last Oral Intake NPO since Meds taken in AM with sips of water? Meds patient instructed to take am of surgery PONV PONV - statistician applied: PONV - statistician applied Female Yes 05/18/24 13:40 HX of Motion Sickness Yes 05/18/24 13:40 HX of N/V After Surgery Yes 05/18/24 13:40 Non-Smoker Yes 05/18/24 13:40 Duration of Surgery greater No 05/18/24 13:40 than 60 minutes Number of Risk Factors 4 05/18/24 13:40 PONV Score Severe Risk 05/18/24 13:40 Height & Weight Height & Weight: Anesthesia: Height & Weight Height 5 ft 2.5 in 04/05/24 15:19 Respiratory Assessment Respiratory Assessment - statistician applied: Respiratory Tract Infection Hx - statistician applied Hx Respiratory Tract Infection No 05/18/24 13:40 STOP Sleep Apnea STOP Sleep Apnea - statistician applied: STOP Sleep Apnea - statistician applied Hx Hypertension No 05/18/24 13:40 Hx Sleep Apnea No 05/18/24 13:40 CPAP BIPAP Do you snore loudly (louder No 05/18/24 13:40 than talking or can be heard Do you often feel tired/ No 05/18/24 13:40 fatigued/ sleepy during daytime? Has anyone observed you stop No 05/18/24 13:40 breathing during sleep? STOP Results Negative 05/18/24 13:40 QUESTION #5 FULL TEXT : Do you snore loudly (louder than talking or can be heard through closed doors)? Tobacco Use History Tobacco Use History - statistician applied: Tobacco Use History - statistician applied Tobacco Use Smoking Status Never smoker 05/18/24 13:40 Hx Tobacco Use No 05/18/24 13:40 Years Smoking Packs Smoked per Day Smoking Cessation Date was within the last 15 years Hx Smoking Cessation Date Hx Smoking Cessation Counseling Hematologic Medial History Hematologic Hx - statistician applied: Hematologic Medical Hx - statistician applied Hx of Blood Transfusion No 05/18/24 13:40 Hx of Transfusion in last 3 No 05/18/24 13:40 Months Date of Last Transfusion (if within last 3 months) Ever experience any problems No 05/18/24 13:40 with transfusion(s)? Specify any problems Hx of Preganancy in last 3 No 05/18/24 13:40 Months Nurse Filling Out Transfusion [id number] 05/18/24 13:40 & Questions: Date: 05/18/24 05/18/24 13:40 Time: 13:43 05/18/24 13:40 Patient unable to answer at this time (ie. confused, unrespo /Reproduction History /Reproductive History - statistician applied: /Reproductive Hx- statistician applied Hx Now Gestational Age (in weeks): EDC: Hx Hx Para Hx Section SAB No 06/20/23 12:49 PFSH Medical History (Updated 05/18/24 @ 13:46 by Too [place]) Anxiety Adnexal cyst Wears glasses Bladder disease High cholesterol Non-smoker Hyperlipidemia Headaches, cluster Home Medications ?Medication ?Instructions ?Recorded ?Last Taken ?Type vitamin B complex (B 1 tab PO QDAY 08/05/17 11/22/19 History Complex-Vitamin B12 tablet) omega-3 fatty acids 1,000 mg 1,000 mg PO DAILY 08/04/19 05/16/24 History capsule (Fish Oil Concentrate) rosuvastatin 20 mg tablet (Crestor) 20 mg PO DAILY 08/04/19 11/22/19 History coenzyme Q10 100 mg capsule 100 mg PO DAILY 11/16/19 11/22/19 History spironolactone 100 mg tablet 100 mg PO DAILY 11/16/19 11/22/19 History lactobacillus combo no.11 15 1 cap PO QDAY 04/05/24 Unknown History billion cell sprinkle capsule (Probiotic) multivitamin 1 tab PO QAM 04/05/24 Unknown History psyllium husk 0.52 gram capsule 1.04 g PO TID 04/05/24 05/16/24 History (Daily Fiber) scopolamine base 1 mg over 3 days 1 patch transdermal Q3D PRN motion 04/05/24 Unknown History transdermal patch sickness Allergy/AdvReac Type Severity Reaction Status Date / Time No Known Allergies Allergy Verified 05/18/24 13:37 Family History Other Alcoholism Anxiety Asthma High cholesterol Surgical History History of total vaginal hysterectomy (TVH) Hx of bilateral salpingectomy History of breast augmentation History of exploratory laparotomy Social History (Updated 04/05/24 @ 15:13 by Lindsey Aragon) current occupational status: employed Smoking Status: Never smoker alcohol intake: never substance use type: does not use what type of physical activity do you participate in: running, yoga and weight training frequency: 3-4 times per week seatbelt use: always do you feel safe at home: Yes 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
[2024-05-20] VITALS (9 sets, daily range): BP systolic 90–109; BP diastolic 60–77; PULSE 62–91; RESP 16; TEMP 36.4–36.9; O2SAT 97–98; BMI 25.2
--- NOTE | 2024-05-20 06:43 | HP.PCM_ITS ---
HPI - General General Date of Admission: 05/20/24 Date of Service: 05/20/24 Chief Complaint: Screening colonoscopy HPI Narrative ISIDORO GARCIAS, is a 43 F who presents today for screening colonoscopy. She has not had a colonoscopy in the past. Only past medical history is mild hypercholesterolemia and migraine disorder. [facility] Medical History Anxiety Adnexal cyst Wears glasses Bladder disease High cholesterol Non-smoker Hyperlipidemia Headaches, cluster Home Medications ?Medication ?Instructions ?Recorded ?Last Taken ?Type vitamin B complex (B 1 tab PO QDAY 08/05/17 05/19/24 History Complex-Vitamin B12 tablet) omega-3 fatty acids 1,000 mg 1,000 mg PO DAILY 08/04/19 05/16/24 History capsule (Fish Oil Concentrate) rosuvastatin 20 mg tablet (Crestor) 20 mg PO DAILY 08/04/19 05/19/24 History coenzyme Q10 100 mg capsule 100 mg PO DAILY 11/16/19 05/19/24 History spironolactone 100 mg tablet 100 mg PO DAILY 11/16/19 05/19/24 History lactobacillus combo no.11 15 1 cap PO QDAY 04/05/24 05/19/24 History billion cell sprinkle capsule (Probiotic) multivitamin 1 tab PO QAM 04/05/24 05/19/24 History psyllium husk 0.52 gram capsule 1.04 g PO TID 04/05/24 05/16/24 History (Daily Fiber) scopolamine base 1 mg over 3 days 1 patch transdermal Q3D PRN motion 04/05/24 Unknown History transdermal patch sickness Allergy/AdvReac Type Severity Reaction Status Date / Time No Known Allergies Allergy Verified 05/18/24 13:37 Family History Other Alcoholism Anxiety Asthma High cholesterol Surgical History History of total vaginal hysterectomy (TVH) Hx of bilateral salpingectomy History of breast augmentation History of exploratory laparotomy Social History current occupational status: employed Smoking Status: Never smoker alcohol intake: never substance use type: does not use what type of physical activity do you participate in: running, yoga and weight training frequency: 3-4 times per week seatbelt use: always do you feel safe at home: Yes 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[employer] Vital Signs Vital Signs Vital Signs: 05/20/24 06:23 05/20/24 06:24 Temperature 98.5 F Temperature Source Temporal Pulse Rate 91 Respiratory Rate 16 Respiratory Pattern Normal Blood Pressure 109/77 Blood Pressure Mean 87 Blood Pressure Source Monitor Blood Pressure Position Semi-Fowlers Blood Pressure Location Right Arm Pulse Ox 98 Oxygen Delivery Method Room Air Weight Weight: 137 lb 12.623 oz Body Mass Index (BMI) 25.2 Physical Exam Const alert, oriented x3, no apparent distress and healthy appearing General Appearance: cooperative GI normal to inspection, nondistended, normoactive bowel sounds, soft to palpation, non-tender and non-distended Percussion: normal to percussion Rectal Exam: deferred Assessment & Plan Assessment/Plan (1) Encounter for screening for malignant neoplasm of colon: PLAN: She was explained alternatives, benefits, risk include not withstanding bleeding, infection, sepsis, perforation, need for emergent urgent . She will have an ASA of 3.
--- NOTE | 2024-05-20 06:43 | PCM.PRE.AN2 ---
ASA Classification* ASA Classification ASA Classification: 2 Assessment & Plan Anesthesia* Anesthesia Assessment Anesthesia Assessment: Discussed sedation and/or anesthesia options, risks, benefits, and alternatives with patient/parents/legal guardian/POA. Questions invited. The patient/parents/legal guardian/POA seems to understand and agrees to proceed with anesthesia plan. Reviewed the physical assessment, medical history, allergy history and patient home medications list prior to surgery/procedure/anesthetic and documented any changes. Performed airway and anesthesia risk assessments. Anesthesia Type Anesthesia Type: MAC History Source History Obtained from:: Patient and Chart Anesthesia Focused Assessment* Temperature: 98.5 F Pulse Rate: 91 Blood Pressure: 109/77 Respiratory Rate: 16 Pulse Ox: 98 Oxygen Delivery Method: Room Air Airway Assessment Mouth opens: >3 cm Mallampati Score: II Teeth Condition: Intact Neck Range of motion (ROM): Full ROM Focused Labs Anesthesia Preop lab: CBC WBC 7.5 K/mm3 (4.4-11.0) 04/01/24 07:38 RBC 4.47 M/mm3 (4.2-5.4) 04/01/24 07:38 Hgb 13.5 g/dL (12.0-15.0) 04/01/24 07:38 Hct 40.0 % (37-47) 04/01/24 07:38 Plt Count 229 K/mm3 (150-450) 04/01/24 07:38 CHEMISTRY Potassium 3.8 mmol/L (3.5-5.1) 04/01/24 07:38 Sodium 139 mmol/L (136-145) 04/01/24 07:38 Magnesium 1.8 mg/dL (1.6-2.6) 04/29/22 07:20 Phosphorus 2.6 mg/dL (2.5-4.9) 04/01/24 07:38 BUN 14 mg/dL (7-18) 04/01/24 07:38 Creatinine 0.81 mg/dL (0.55-1.02) 04/01/24 07:38 Glucose 88 mg/dL (74-106) 04/01/24 07:38 POC Glucose 119 mg/dL (74-106) H 04/30/22 09:22 COAG Urine Test Negative Negative 11/23/19 07:25 Pre-Assessment Diagnosis/Proposed Procedure Planned Operative Procedure(s): COLONOSCOPY Anesthesia History 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 When Was Last Pacemaker Check QUESTION #4 FULL TEXT: You/Your Family Experience fever (hyperthermia) with Anesthesia Last Oral Intake Last Oral intake: Last Oral Intake NPO since 00:00 05/20/24 06:24 Meds taken in AM with sips of water? Meds patient instructed to take am of surgery PONV PONV - cloud infrastructure architect: PONV - cloud infrastructure architect Female Yes 05/18/24 13:40 HX of Motion Sickness Yes 05/18/24 13:40 HX of N/V After Surgery Yes 05/18/24 13:40 Non-Smoker Yes 05/18/24 13:40 Duration of Surgery greater No 05/18/24 13:40 than 60 minutes Number of Risk Factors 4 05/18/24 13:40 PONV Score Severe Risk 05/18/24 13:40 Height & Weight Height & Weight: Anesthesia: Height & Weight Height 5 ft 2 in 05/20/24 06:24 Weight: 62.5 kg 05/20/24 06:24 Body Mass Index (BMI) 25.2 05/20/24 06:24 Respiratory Assessment Respiratory Assessment - cloud infrastructure architect: Respiratory Tract Infection Hx - cloud infrastructure architect Hx Respiratory Tract Infection No 05/18/24 13:40 STOP Sleep Apnea STOP Sleep Apnea - cloud infrastructure architect: STOP Sleep Apnea - cloud infrastructure architect Hx Hypertension No 05/18/24 13:40 Hx Sleep Apnea No 05/18/24 13:40 CPAP BIPAP Do you snore loudly (louder No 05/18/24 13:40 than talking or can be heard Do you often feel tired/ No 05/18/24 13:40 fatigued/ sleepy during daytime? Has anyone observed you stop No 05/18/24 13:40 breathing during sleep? STOP Results Negative 05/18/24 13:40 QUESTION #5 FULL TEXT : Do you snore loudly (louder than talking or can be heard through closed doors)? 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 Specify any problems Hx of Preganancy in last 3 No 05/18/24 13:40 Months Nurse Filling Out Transfusion [email or web address] 05/18/24 13:40 & Questions: Date: 05/18/24 05/18/24 13:40 Time: 13:43 05/18/24 13:40 Patient unable to answer at this time (ie. confused, unrespo /Reproduction History /Reproductive History - cloud infrastructure architect: /Reproductive Hx- cloud infrastructure architect Hx Now Gestational Age (in weeks): EDC: Hx Hx Para Hx Section SAB No 06/20/23 12:49 PFSH Medical History Anxiety Adnexal cyst Wears glasses Bladder disease High cholesterol Non-smoker Hyperlipidemia Headaches, cluster Home Medications ?Medication ?Instructions ?Recorded ?Last Taken ?Type vitamin B complex (B 1 tab PO QDAY 08/05/17 05/19/24 History Complex-Vitamin B12 tablet) omega-3 fatty acids 1,000 mg 1,000 mg PO DAILY 08/04/19 05/16/24 History capsule (Fish Oil Concentrate) rosuvastatin 20 mg tablet (Crestor) 20 mg PO DAILY 08/04/19 05/19/24 History coenzyme Q10 100 mg capsule 100 mg PO DAILY 11/16/19 05/19/24 History spironolactone 100 mg tablet 100 mg PO DAILY 11/16/19 05/19/24 History lactobacillus combo no.11 15 1 cap PO QDAY 04/05/24 05/19/24 History billion cell sprinkle capsule (Probiotic) multivitamin 1 tab PO QAM 04/05/24 05/19/24 History psyllium husk 0.52 gram capsule 1.04 g PO TID 04/05/24 05/16/24 History (Daily Fiber) scopolamine base 1 mg over 3 days 1 patch transdermal Q3D PRN motion 04/05/24 Unknown History transdermal patch sickness Allergy/AdvReac Type Severity Reaction Status Date / Time No Known Allergies Allergy Verified 05/18/24 13:37 Family History Other Alcoholism Anxiety Asthma High cholesterol Surgical History History of total vaginal hysterectomy (TVH) Hx of bilateral salpingectomy History of breast augmentation History of exploratory laparotomy Social History current occupational status: employed Smoking Status: Never smoker alcohol intake: never substance use type: does not use what type of physical activity do you participate in: running, yoga and weight training frequency: 3-4 times per week seatbelt use: always do you feel safe at home: Yes 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
--- NOTE | 2024-05-20 07:56 | OP.COLON_ITS ---
Patient Name: Kaylie Fuentes Procedure Date: 05/20/2024 7:22 AM Date of : 1980 Age: 43 Procedure: Colonoscopy Indications: Screening for colorectal malignant neoplasm Providers: Abdullahi Arriola DO Referring MD: Yeison Aguilar Medicines: Monitored Anesthesia Care Patient Profile: This is a 43 year old female. Refer to note in patient chart for documentation of history and physical. Last Colonoscopy: none. The patient's first colonoscopy is today. Complications: No immediate complications. Procedure: Pre-Anesthesia Assessment: - Prior to the procedure, a History and Physical was performed, and patient medications and allergies were reviewed. The patient is competent. The risks and benefits of the procedure and the sedation options and risks were discussed with the patient. All questions were answered and informed consent was obtained. Patient identification and proposed procedure were verified by the physician in the pre-procedure area. Mental Status Examination: alert and oriented. Airway Examination: normal oropharyngeal airway and neck mobility. Respiratory Examination: clear to auscultation. CV Examination: normal. Prophylactic Antibiotics: The patient does not require prophylactic antibiotics. Prior Anticoagulants: The patient has taken no anticoagulant or antiplatelet agents. ASA Grade Assessment: II - A patient with mild systemic disease. After reviewing the risks and benefits, the patient was deemed in satisfactory condition to undergo the procedure. The anesthesia plan was to use monitored anesthesia care (MAC). Immediately prior to administration of medications, the patient was re-assessed for adequacy to receive sedatives. The heart rate, respiratory rate, oxygen saturations, blood pressure, adequacy of pulmonary ventilation, and response to care were monitored throughout the procedure. The physical status of the patient was re-assessed after the procedure. After I obtained informed consent, the scope was passed under direct vision. Throughout the procedure, the patient's blood pressure, pulse, and oxygen saturations were monitored continuously. The Colonoscope was introduced through the anus and advanced to the cecum, identified by appendiceal orifice and ileocecal valve. The colonoscopy was performed without difficulty. The patient tolerated the procedure well. The quality of the bowel preparation was adequate. The ileocecal valve, appendiceal orifice, and rectum were photographed. Scope In: 7:35:08 AM Scope Withdrawal Time 0 hours 5 minutes 21 seconds Scope Out: 7:50:20 AM Total Procedure Duration Time 0 hours 15 minutes 12 seconds Findings: The perianal and digital rectal examinations were normal. The sigmoid colon and hepatic flexure were moderately redundant. The exam was otherwise without abnormality on direct and retroflexion views. Impression: - Redundant colon. - The examination was otherwise normal on direct and retroflexion views. - No specimens collected. Recommendation: - Discharge patient to home. - Resume previous diet. - Continue present medications. - Repeat colonoscopy in 10 years for screening purposes. Procedure Code(s): --- Professional --- G0121, Colorectal cancer screening; colonoscopy on individual not meeting criteria for high risk CPT copyright 2021 [employer]. All rights reserved. The codes documented in this report are preliminary and upon certified medical records coder review may be revised to meet current compliance requirements. Abdullahi Arriola DO 05/20/2024 7:55:49 AM This report has been signed electronically. Number of Addenda: 0 Note Initiated On: 05/20/2024 7:22 AM
--- NOTE | 2024-05-20 07:56 | OP.CCLET_ITS ---
05/20/2024 Yeison Aguilar [id number] [place] [address] Re : Colonoscopy procedure for Kaylie Fuentes Dear Dr. Aguilar This procedure was performed on May. My impressions and recommendations are as follows: Impressions : - Redundant colon. - The examination was otherwise normal on direct and retroflexion views. - No specimens collected. Recommendations : - Discharge patient to home. - Resume previous diet. - Continue present medications. - Repeat colonoscopy in 10 years for screening purposes. My findings are described in the full procedure note, which is enclosed. If I can be of further assistance, please feel free to contact me at . Sincerely, Abdullahi Friend, 05/20/2024 7:55:49 AM This report has been signed electronically.
--- NOTE | 2024-05-20 07:57 | PCM.POST.ANE ---
Anesthesia: Postop Eval I Current Vital Signs Temperature: 97.6 F Pulse Rate: 74 Blood Pressure: 90/60 Respiratory Rate: 16 Pulse Ox: 97 Oxygen Delivery Method: Room Air Assessment Airway patent: Yes Spontaneous unlabored respirations: Yes Mental status: Asleep nausea: No Vomiting: No Anesthesia Complication: No Fluid Hydration Crystalloid volume administer (ml): 50 Total IV fluid infused: 50 Progress Note Anesthesia document: Postop Eval 1 completed: Yes
--- NOTE | 2024-05-21 07:30 | PCM.POSTANE2 ---
Anesthesia Postop Eval I Sum Postop Eval Completion status Anesthesia document: Postop Eval 1 completed: Yes Anesthesia Postop Eval I Summary Anesthesia Postop Eval I Summary: Anesthesia Postop Eval I: Assessment Summary Airway patent Yes 05/20/24 07:58 [email or web address] Spontaneous unlabored Yes 05/20/24 07:58 [email or web address] respirations Mental status Asleep 05/20/24 07:58 [email or web address] nausea No 05/20/24 07:58 [email or web address] Vomiting No 05/20/24 07:58 [email or web address] Anesthesia Postop Eval I: Fluid Summary Crystalloid volume administer 50 05/20/24 07:58 [email or web address] (ml) Colloids volume administered ( ml) Blood Product volume administered (ml) Total IV fluid infused 50 05/20/24 07:58 [email or web address] Anesthesia Postop Eval I: Summary Notes Anesthesia Complication No 05/20/24 07:58 [email or web address] Anesthesia Complication Comment: Post-operative progress note Anesthesia: Postop Eval II Evaluation Mental status: Awake Pain Level: 0 nausea: No Vomiting: No
== END 2024-05-20 08:44 | disposition home or self-care (01) ==
LOC: EN 06:10 → AC 06:11
PROVIDERS: PCP Family Medicine; Referring Provider Family Medicine; Visit Provider Internal Medicine Gastroenterology
PROC: 0DJD8ZZ Inspection of Lower Intestinal Tract, Via Natural or Artificial Opening Endoscopic (ICD-10-PCS; CPT 45378; principal; 2024-05-20 06:55)
DX: Z12.11 Encounter for screening for malignant neoplasm of colon (principal); Q43.8 Other specified congenital malformations of intestine; E78.00 Pure hypercholesterolemia, unspecified; Z79.899 Other long term (current) drug therapy
CPT/HCPCS: 45378; A4216; J2405